=== PATIENT | male | born 1995 | race Caucasian/White ===

== ENCOUNTER → 2016-06-26 | Outpatient (CLI) | payer SELFPAY ==
--- NOTE | 2016-06-26 10:53 | Diagnostic Imaging Report ---
EXAMINATION: Ultrasound of the scrotum. INDICATION: Injury. FINDINGS: The right testicle is 4.6 x 2.3 x 3 cm. The left testicle is 4.4 x 2 x 3 cm. Both testicles demonstrate arterial and venous waveforms. Homogeneous echotexture of the testicular parenchyma is seen bilaterally. No testicular mass. There is no hematoma or fluid collection. No varicocele. IMPRESSION: Unremarkable exam. Dictated by: Dictated on workstation # [id number]
== END ==
LOC: RAD 09:59
PROVIDERS: ATTEND Nurse Practitioner Family
DX: N50.9 Disorder of male genital organs, unspecified (principal)
CPT/HCPCS: 76870